=== PATIENT | female | born 1975 | race Caucasian/White ===

== ENCOUNTER 2023-08-03 06:52 | Day surgery (SDC) | payer OTHER ==
[~2023-08-03] VITALS: Ht 172.7 cm; Wt 68.2 kg
[2023-08-03] MEDS: NS 1,000 ML IV ONE (07:17)
[2023-08-03] MEDS ORDERED: propofoL 500 MG/50 ML VIAL As Ordered ONE (08:10)
[2023-08-03] MEDS ORDERED: LIDOCAINE 2% 100MG/5ML SDV (FOR ANES.) As Ordered ONE (08:10)
[2023-08-03 08:14] VITALS: TEMP 96.5
[2023-08-03 08:35] VITALS: BP 106/60; O2SAT 100
== END 2023-08-03 08:37 | disposition home or self-care (01) ==
LOC: M OPP 06:52
PROVIDERS: ATTEND Internal Medicine Gastroenterology
DX: Z12.11 Encounter for screening for malignant neoplasm of colon (principal)